=== PATIENT | female | born 1940 | race Caucasian/White ===

== ENCOUNTER 2018-11-15 05:36 | Inpatient (IN) | payer OTHER ==
[2018-11-03 12:01] LABS: HEMATOCRIT 41.1 % (37.0-47.0); HEMOGLOBIN 13.8 gm/dL (12.0-15.0); MCH 29.7 pg (26.0-34.0); MCHC 33.5 g/dL (28.0-37.0); MCV 88.5 fL (80.0-100.0); RBC 4.64 mil/uL (4.20-5.00); RDW 13.4 % (10.5-14.5); WBC 6.7 thou/uL (4.0-11.0)
[2018-11-03 12:05] LABS: URINE BILIRUBIN NEGATIVE (Negative); URINE BLOOD NEGATIVE (Negative); URINE CLARITY CLEAR; URINE COLOR YELLOW; URINE GLUCOSE-RANDOM* NEGATIVE (Negative); URINE KETONES NEGATIVE (Negative); URINE LEUKOCYTES-REFLEX NEGATIVE (Negative); URINE NITRITE-REFLEX NEGATIVE (Negative); URINE PROTEIN (DIPSTICK) NEGATIVE (Negative); URINE SPECIFIC GRAVITY 1.015 (1.005-1.035); URINE UROBILINOGEN 0.2 E.U./dl (0.2-1.0)
[2018-11-03 12:12] LABS: CALCIUM 9.4 mg/dL (8.5-10.1); CREATININE 0.7 mg/dL (0.6-1.0); POTASSIUM 3.9 mmol/L (3.5-5.1)
--- NOTE | 2018-11-04 07:25 | EKG ---
[address] [address] ELECTROCARDIOGRAM REPORT Name: MICA ISAACS Room #: PRE IN .R.#: [id number] ������������������ Admission: ������������������ Attend Phys: Ousmane Tran MD Discharge: ������������������ Date of : 44 Report #: [id number] ����������������������������������������������������������������� [id number] THIS REPORT FOR: //name// [facility] Test Date: 2018-11-03 Test Time: 11:52:16 Pat Name: MICA ISAACS Department: Room: Gender: F Digital Recruiter: Sonia PARADA : 1940 Requested By: Ousmane Tran Order Number: [id number] MD: Walter Meza Measurements Intervals [place] Rate: 73 P: 78 UT: 198 QRS: 67 QRSD: 88 T: 56 QT: 399 QTc: 440 Interpretive Statements Sinus rhythm No significant abnormality No previous ECG available for comparison Electronically Signed On 11-04-2018 7:25:20 CDT by Walter Meza [email or web address] ��������������������������������������������� <ELECTRONICALLY SIGNED> ���������������������������������������� By: Walter Meza MD, [facility] ��������������������������������������������� 11/04/18 0725 1152 1152 Walter Meza MD, FACC /EPI
[~2018-11-15] VITALS: Ht 162.6 cm; Wt 77.1 kg
[~2018-11-15 05:36] MED LIST: ACYCLOVIR 400400 MG PO; CHLORTHALIDONE25 MG PO; IPRATROPIUM BRO15 ML NASAL; LEXAPRO 10 MG T10 M2 PO; OMEPRAZOLE40 MG PO; PRAVACHOL40 MG PO
[2018-11-15 12:04] VITALS: BP 134/75
[2018-11-15 17:51] VITALS: BP 132/65
[2018-11-15 20:25] VITALS: BP 119/60
[2018-11-16 03:15] VITALS: BP 107/74
[2018-11-16 03:31] LABS: HEMOGLOBIN 12.1 gm/dL (12.0-15.0); MCH 29.9 pg (26.0-34.0); MCHC 33.6 g/dL (28.0-37.0); MCV 88.8 fL (80.0-100.0); RBC 4.05 mil/uL (4.20-5.00); WBC 8.8 thou/uL (4.0-11.0)
[2018-11-16] MEDS ORDERED: MUPIROCIN22 GM NASAL (04:40)
[2018-11-16] MEDS ORDERED: NEURONTIN 300300 M1 PO (09:05)
[2018-11-16] MEDS ORDERED: ASPIR 8181 MG PO (09:05)
[2018-11-16 10:34] VITALS: BP 107/74
--- NOTE | 2018-11-17 12:52 | O ---
[facility] [place] [address] OPERATIVE REPORT Name: MICA ISAACS Room #: 421-P [facility] IN M.R.#: [id number] Admission: 11/15/18 ������������������ Attend Phys: Ousmane Tran MD Discharge: 11/16/18 ������������������ Date of : 44 Report #: [id number] THIS REPORT FOR: //name// CC: Danielle Tran DATE OF SERVICE: 11/15/2018 PREOPERATIVE DIAGNOSIS: Left knee medial compartment osteoarthritis. POSTOPERATIVE DIAGNOSIS: Left knee medial compartment osteoarthritis. PROCEDURE: Left medial compartment knee arthroplasty using Navio robotic assistance. SURGEON: Ousmane Tran MD KNITTED CLOTH EXAMINER: None. ANESTHESIA: LMA with an adductor canal block. IMPLANTS: [employer]hew size 3 Oxinium medial femoral component, a size 2 tibia, a size 9 polyethylene. TOURNIQUET TIME: 49 minutes. ESTIMATED BLOOD LOSS: 25 mL. COMPLICATIONS: None. SPECIMENS: None. CONDITION UPON LEAVING THE OPERATING ROOM: Stable. INDICATIONS FOR OPERATION: The patient is a 78-year-old female with left knee medial compartment osteoarthritis. She failed conservative measures for this and after discussion with her, she elected for left medial compartment knee arthroplasty. DESCRIPTION OF PROCEDURE: Risks, benefits, alternatives, complications were discussed in detail with the patient including but not limited to risk of anesthesia, risk of damage to nerves, arteries and blood vessels, risk for infection and bleeding, risk for continued knee pain and need for reoperation. Informed consent was obtained from the patient. Left knee was appropriately marked in the preoperative holding area. Adductor canal block was placed by Anesthesia. She was brought to the operating room and placed in the supine [facility] [address] [place] [address] OPERATIVE REPORT Name: MICA ISAACS Room #: 421-P DIS IN M.R.#: [id number] Admission: 11/15/18 ������������������ Attend Phys: Ousmane Tran MD Discharge: 11/16/18 ������������������ Date of : 44 Report #: [id number] position on the operating room table. LMA anesthesia was induced without complication. Tourniquet was placed on the left thigh. Left lower extremity was prepped and draped in normal sterile fashion. Timeout was performed properly identifying the patient and procedure as well as instrumentation. All in the operating room were in agreement. Left lower extremity was exsanguinated, tourniquet was inflated and tourniquet time was 49 minutes. Standard medial approach to the knee was made with a 10 blade through the skin. Dissection was taken down sharply to the fascia and deep flaps were developed medially and laterally. A fresh 10 blade was used to make a medial parapatellar arthrotomy and the knee was inspected. There was severe medial compartment osteoarthritis with well-maintained lateral and patellofemoral compartments. We decided to proceed with total knee arthroplasty. The reference pins were placed in the femur and the tibia and the knee was digitally mapped using a Fyreball robotic system. We sized a size 3 femur and a size 2 tibia with a 9 spacer. After acceptance of the intraoperative plan, the femoral and tibial resections were made with the Navio bur. Tibia was sized, found to be of size 2. A size 2 tibial trial was placed, pinned and drilled. A size 3 femoral trial was placed. This was then trialed with a size 8 and then a size 9 polyethylene. A size 9 polyethylene demonstrated 1 mm to 1.5 mm of laxity throughout range of motion of the knee and was felt to have the best fit. After this, trial components were removed. Bony ends were thoroughly irrigated with normal saline and a final size 2 tibia, a size 3 Journey Oxinium femur and a size 9 polyethylene were cemented in place using standard cementation techniques. While the cement cured, a periarticular injection consisting of morphine, ropivacaine, epinephrine and Toradol was placed around the knee joint capsule. After the cement cured, tourniquet was deflated. Hemostasis was obtained with Bovie cautery. Final size 9 polyethylene was placed. A gram of vancomycin was placed deep in the joint. Fascia was closed with 0 Vicryl, skin was closed with 2-0 Vicryl and 3-0 Monocryl. Dermabond and a TOOTIE dressing was applied. The patient tolerated this procedure well and went to the recovery room under care of Anesthesia postoperatively. ��������������������������������������������� <ELECTRONICALLY SIGNED> ���������������������������������������� By: Ousmane Tran MD ��������������������������������������������� 11/17/18 1252 1340 1448 Ousmane rTan MD /nt
== END 2018-11-16 12:30 | disposition home or self-care (01) | DRG 470 ==
LOC: 4E 05:36 → TBA 05:36 → PRE 05:44 → 4E 15:35 → ENTRNSPT 11-16 11:10 → EDTRNSPTSTS 11-16 11:12 → 4E 11-16 12:30
PROVIDERS: ADMIT Orthopaedic Surgery
PROC: 8E0Y0CZ Robotic Assisted Procedure of Lower Extremity, Open Approach (ICD-10-PCS; principal; 2018-11-15)
PROC: 0SRD0L9 Replacement of Left Knee Joint with Medial Unicondylar Synthetic Substitute, Cemented, Open Approach (ICD-10-PCS; principal; 2018-11-15)
DX: M17.12 Unilateral primary osteoarthritis, left knee (principal); Z87.891 Personal history of nicotine dependence; R33.9 Retention of urine, unspecified; Z98.49 Cataract extraction status, unspecified eye
CPT/HCPCS: 10783; 50010; 50101; 50415; 50954; 51130; 51225; 53078; 53370; 54118; 56527; 56528; 57095; 57103; 57110; 57127; 57180; 62110; 62900; 70005